=== PATIENT | female | born 1970 | race Caucasian/White ===

== ENCOUNTER 2018-03-25 20:54 | Inpatient (IN) | payer BC ==
[2018-03-25] MEDS: SOD CHLORIDE 0.9% 1,000 ML IV (22:02)
[2018-03-25] MEDS: KETOROLAC 30 MG INJ IV (22:03)
[2018-03-25] MEDS: ONDANSETRON 4 MG INJ IV (22:03)
[2018-03-25 22:04] LABS: ADD MAN DIFF? NO
[2018-03-25 22:10] LABS: BASOPHILS % 0.2 % (0.0-2.0); EOSINOPHILS % 0.1 % (0.0-7.0); HEMATOCRIT 40.2 % (37.0-47.0); HEMOGLOBIN 13.4 g/dl (12.0-16.0); LYMPHOCYTES # 1.2 10^3/ul (0.8-2.9); LYMPHOCYTES % 10.1 % (15.0-51.0); MEAN CORPUSCULAR HEMOGLOBIN 29.1 pg (29.0-33.0); MEAN CORPUSCULAR HGB CONC 33.3 g/dl (32.0-37.0); MEAN CORPUSCULAR VOLUME 87.4 fl (82.0-101.0); MEAN PLATELET VOLUME 8.6 fl (7.4-10.4); MONOCYTE # 0.5 10^3/ul (0.3-0.9); MONOCYTES % 3.7 % (0.0-11.0); NEUTROPHIL # 10.3 10^3/ul (1.6-7.5); NEUTROPHILS % 85.7 % (39.0-77.0); PLATELET COUNT 339 10^3/UL (140-415); RED CELL DISTRIBUTION WIDTH 12.8 % (11.5-14.5)
[2018-03-25 22:10] LABS: WHITE BLOOD COUNT 12.1 10^3/ul (4.8-10.8)
[2018-03-25 22:28] LABS: ADD UMIC YES; UR ASCORBIC ACID 40 mg/dL (NEGATIVE); UR BACTERIA FEW /HPF (NONE SEEN); UR BILIRUBIN (Dip) NEGATIVE (NEGATIVE); UR BLOOD (Dip) NEGATIVE (NEGATIVE); UR CLARITY SLIGHTLY CLOUDY (CLEAR); UR COLOR YELLOW (YELLOW); UR GLUCOSE (Dip) NEGATIVE (NEGATIVE); UR KETONES (Dip) 2+ mg/dL (NEGATIVE); UR LEUKOCYTE ESTERASE (Dip) NEGATIVE Leu/ul (NEGATIVE); UR MUCUS FEW /HPF (NONE SEEN); UR NITRITE (Dip) NEGATIVE (NEGATIVE); UR RBC 11 /HPF (0-5); UR SPECIFIC GRAVITY (Dip) 1.028 (1.003-1.030); UR SQUAMOUS EPITHELIAL CELL FEW /HPF (FEW); UR TOTAL PROTEIN (Dip) 1+ mg/dl (NEGATIVE); UR UROBILINOGEN (Dip) NEGATIVE (NEGATIVE); UR WBC 1 /HPF (0-5)
[2018-03-25 22:31] LABS: ALANINE AMINOTRANSFERASE 31 IU/L (13-69); ALBUMIN 4.1 g/dl (3.3-4.9); ALBUMIN/GLOBULIN RATIO 0.89; ALKALINE PHOSPHATASE 62 IU/L (42-121); ANION GAP 17 (8-16); ASPARTATE AMINO TRANSFERASE 32 IU/L (15-46); BILIRUBIN,INDIRECT 0.5 mg/dl (0-1.1); BILIRUBIN,TOTAL 0.5 mg/dl (0.2-1.3); BLOOD UREA NITROGEN 12 mg/dl (7-20); CALCIUM 9.8 mg/dl (8.4-10.2); CARBON DIOXIDE 24 mmol/L (21-31); CHLORIDE 103 mmol/L (97-110); CREATININE 0.72 mg/dl (0.44-1.00); GLUCOSE 103 mg/dl (70-220); LIPASE 75 U/L (23-300); SODIUM 140 mmol/L (135-144); TOTAL PROTEIN 8.7 g/dl (6.1-8.1)
[2018-03-25 22:48] LABS: INR 0.96; PARTIAL THROMBOPLASTIN TIME 28.9 Sec (25.0-35.0); PROTIME 12.9 Sec (11.9-14.9)
[2018-03-26] MEDS: HYDROmorphONE 0.5 MG/0.5 ML SYG IV (00:26)
[2018-03-26] MEDS ORDERED: NACL 0.9% 3 ML SYG IV (01:00)
[2018-03-26] MEDS ORDERED: ONDANSETRON 4 MG INJ IV ×3 (01:00→18:00)
[2018-03-26] MEDS: PIPER-TAZO 3.375 GM IV (PMX) 100 ML IVPB ×5 (01:30→23:56)
[2018-03-26] MEDS: SOD CHLORIDE 0.9% 1,000 ML IV ×4 (01:30→23:56)
[2018-03-26] MEDS: morphine 2 MG INJ IV ×3 (06:13→15:19)
[2018-03-26] MEDS: FAMOTIDINE 20 MG INJ IV ×3 (09:53→20:51)
[2018-03-26 10:44] LABS: ADD MAN DIFF? NO
[2018-03-26 10:47] LABS: WHITE BLOOD COUNT 8.9 10^3/ul (4.8-10.8)
[2018-03-26 10:47] LABS: BASOPHILS % 0.1 % (0.0-2.0); EOSINOPHILS # 0.1 10^3/ul (0.0-0.5); EOSINOPHILS % 0.7 % (0.0-7.0); HEMATOCRIT 37.7 % (37.0-47.0); HEMOGLOBIN 12.5 g/dl (12.0-16.0); LYMPHOCYTES # 1.6 10^3/ul (0.8-2.9); LYMPHOCYTES % 17.8 % (15.0-51.0); MEAN CORPUSCULAR HEMOGLOBIN 29.5 pg (29.0-33.0); MEAN CORPUSCULAR HGB CONC 33.2 g/dl (32.0-37.0); MEAN CORPUSCULAR VOLUME 88.9 fl (82.0-101.0); MEAN PLATELET VOLUME 8.5 fl (7.4-10.4); MONOCYTE # 0.7 10^3/ul (0.3-0.9); MONOCYTES % 7.6 % (0.0-11.0); NEUTROPHIL # 6.6 10^3/ul (1.6-7.5); NEUTROPHILS % 73.6 % (39.0-77.0); PLATELET COUNT 291 10^3/UL (140-415); RED BLOOD COUNT 4.24 10^6/ul (4.20-5.40); RED CELL DISTRIBUTION WIDTH 12.8 % (11.5-14.5)
[2018-03-26 11:12] LABS: CHOL/HDL RATIO 4.9 RATIO; HDL CHOLESTEROL 41 mg/dl (37-92); LDL CHOLESTEROL,CALCULATED 142 mg/dl; TRIGLYCERIDES 105 mg/dl (0-149)
[2018-03-26 11:12] LABS: CHOLESTEROL 204 mg/dl (100-200)
[2018-03-26 11:21] LABS: ALANINE AMINOTRANSFERASE 30 IU/L (13-69); ALBUMIN 3.2 g/dl (3.3-4.9); ALBUMIN/GLOBULIN RATIO 0.94; ALKALINE PHOSPHATASE 45 IU/L (42-121); ANION GAP 12 (8-16); ASPARTATE AMINO TRANSFERASE 24 IU/L (15-46); BILIRUBIN,INDIRECT 0.8 mg/dl (0-1.1); BILIRUBIN,TOTAL 0.8 mg/dl (0.2-1.3); BLOOD UREA NITROGEN 8 mg/dl (7-20); CALCIUM 8.4 mg/dl (8.4-10.2); CARBON DIOXIDE 24 mmol/L (21-31); CHLORIDE 107 mmol/L (97-110); GLUCOSE 93 mg/dl (70-220); POTASSIUM 3.7 mmol/L (3.5-5.1); SODIUM 139 mmol/L (135-144); TOTAL PROTEIN 6.6 g/dl (6.1-8.1)
[2018-03-26] MEDS ORDERED: ONDANSETRON 4 MG INJ (16:50)
[2018-03-26] MEDS ORDERED: PROPOFOL 20 ML (16:50)
[2018-03-26] MEDS ORDERED: MIDAZOLAM 1 MG/ML 2 ML INJ (16:50)
[2018-03-26] MEDS ORDERED: ROPIVACAINE 0.5 % 30 ML VIAL (16:50)
[2018-03-26] MEDS ORDERED: ROCURONIUM 50 MG INJ (16:50)
[2018-03-26] MEDS ORDERED: METOCLOPRAMIDE 10 MG INJ (16:51)
[2018-03-26] MEDS ORDERED: PIPER-TAZO 3.375 GM IV (PMX) 100 ML (17:13)
[2018-03-26] MEDS ORDERED: DIPHENHYDRAMINE 50 MG INJ IV (17:30)
[2018-03-26] MEDS ORDERED: MEPERIDINE 25 MG INJ IV (17:30)
[2018-03-26] MEDS ORDERED: HYDROmorphONE 1 MG/5 ML IV SYRINGE IV ×3 (17:30)
[2018-03-26] MEDS ORDERED: hydrALAzine 20 MG INJ IV (17:30)
[2018-03-26] MEDS ORDERED: LABETALOL HCL 20MG INJ IV (17:30)
[2018-03-26] MEDS ORDERED: KETOROLAC 30 MG INJ (17:40)
[2018-03-26] MEDS ORDERED: OXYCODONE/ACETAMINOPHEN (5/325) TAB PO (18:00)
[2018-03-26] MEDS ORDERED: morphine 2 MG INJ IV (18:00)
[2018-03-26] MEDS ORDERED: BUPIVACAINE 0.25%/EPI (SDV) 30 ML INJ (18:01)
[2018-03-26] MEDS: BUPIVACAINE 0.25%/EPI (SDV) 30 ML INJ (18:04)
[2018-03-27] MEDS: PIPER-TAZO 3.375 GM IV (PMX) 100 ML IVPB ×2 (05:36→12:21)
[2018-03-27] MEDS: FAMOTIDINE 20 MG INJ IV (05:36)
[2018-03-27] MEDS: OXYCODONE/ACETAMINOPHEN (5/325) TAB PO ×3 (05:45→16:40)
[2018-03-27 07:17] LABS: ADD MAN DIFF? NO
[2018-03-27 07:22] LABS: WHITE BLOOD COUNT 10.2 10^3/ul (4.8-10.8)
[2018-03-27 07:22] LABS: BASOPHILS % 0.4 % (0.0-2.0); EOSINOPHILS # 0.1 10^3/ul (0.0-0.5); EOSINOPHILS % 0.6 % (0.0-7.0); HEMATOCRIT 33.8 % (37.0-47.0); HEMOGLOBIN 11.2 g/dl (12.0-16.0); LYMPHOCYTES # 1.5 10^3/ul (0.8-2.9); LYMPHOCYTES % 14.6 % (15.0-51.0); MEAN CORPUSCULAR HEMOGLOBIN 29.5 pg (29.0-33.0); MEAN CORPUSCULAR HGB CONC 33.1 g/dl (32.0-37.0); MEAN CORPUSCULAR VOLUME 88.9 fl (82.0-101.0); MEAN PLATELET VOLUME 8.8 fl (7.4-10.4); MONOCYTE # 0.6 10^3/ul (0.3-0.9); MONOCYTES % 5.8 % (0.0-11.0); NEUTROPHILS % 78.2 % (39.0-77.0); PLATELET COUNT 274 10^3/UL (140-415); RED CELL DISTRIBUTION WIDTH 12.8 % (11.5-14.5)
[2018-03-27 07:50] LABS: ALANINE AMINOTRANSFERASE 47 IU/L (13-69); ALBUMIN 2.9 g/dl (3.3-4.9); ALKALINE PHOSPHATASE 40 IU/L (42-121); ANION GAP 13 (8-16); ASPARTATE AMINO TRANSFERASE 53 IU/L (15-46); BILIRUBIN,INDIRECT 0.6 mg/dl (0-1.1); BILIRUBIN,TOTAL 0.6 mg/dl (0.2-1.3); BLOOD UREA NITROGEN 7 mg/dl (7-20); CALCIUM 7.8 mg/dl (8.4-10.2); CARBON DIOXIDE 22 mmol/L (21-31); CHLORIDE 108 mmol/L (97-110); CREATININE 0.77 mg/dl (0.44-1.00); GLUCOSE 82 mg/dl (70-220); POTASSIUM 3.6 mmol/L (3.5-5.1); SODIUM 139 mmol/L (135-144); TOTAL PROTEIN 6.1 g/dl (6.1-8.1)
[2018-03-27] MEDS ORDERED: DOCUSATE SODIUM 100 MG CAP PO (10:00)
== END 2018-03-27 17:22 | disposition home or self-care (01) | DRG 419 ==
LOC: FTE 20:54 → PP2 03-26 01:10
PROC: 0FT44ZZ Resection of Gallbladder, Percutaneous Endoscopic Approach (ICD-10-PCS; principal; 2018-03-26 16:55)
DX: K81.0 Acute cholecystitis (principal); K76.0 Fatty (change of) liver, not elsewhere classified
CPT/HCPCS: 36415; 76705; 80053; 80061; 81001; 83690; 84703; 85025; 85610; 85730; 88304; 96361; 96374; 96375; 99285-25